=== PATIENT | female | born 1985 | race Two or more races ===

== ENCOUNTER 2024-03-03 18:22 | Inpatient (IN) | payer OTHER, SELFPAY ==
[2024-03-03] VITALS (10 sets, daily range): BP systolic 125–137; BP diastolic 68–88; PULSE 108–146; RESP 16–38; TEMP 37–38; O2SAT 98–100; BMI 30.3
--- NOTE | ~2024-03-03 | XR_ITS ---
EXAMINATION: XR CHEST CLINICAL INFORMATION: Cough. COMPARISON: None available. TECHNIQUE: 2 views of the chest were obtained. FINDINGS: The heart is normal in size. Both lungs are clear. No pleural effusion. No pneumothorax. No acute osseous abnormality. XR/XR chest 2V IMPRESSION: No acute cardiopulmonary disease. Electronically signed by: Augustus Mejias DO 03/03/2024 09:12 PM [facility]
--- NOTE | ~2024-03-03 | CT_ITS ---
EXAMINATION: CT ANGIOGRAM CHEST CLINICAL INFORMATION: Tachypnea. Cough. COMPARISON: Chest radiograph 03/03/2024. CT abdomen and pelvis 03/03/2024. TECHNIQUE: Multiple axial images were obtained through the chest after the administration of 65 mL of Omnipaque 350 intravenous contrast. Extensive vascular post-processing including two-dimensional and three-dimensional reformatted images were created and reviewed on an independent workstation. This CT examination was performed using dose optimization techniques as appropriate, variously including the following: *Automated exposure control *Adjustment of mA and/or kV according to patient size (this includes techniques or standardized protocols for targeted exams where dose is matched to indication/reason for exam; i.e. extremities or head) *Use of iterative reconstruction technique DLP: 256 mGy-cm FINDINGS: Pulmonary arteries: High-density intraluminal opacification of the pulmonary arterial system is noted. No intraluminal filling defects are identified to suggest the presence of pulmonary emboli. The main and central pulmonary arteries are normal in caliber. Thoracic aorta: Normal in caliber and contour. Mediastinum: The thyroid is partially visualized and is normal in appearance. No mediastinal lymphadenopathy. Normal heart size. No pericardial thickening or pericardial fluid collections. Lungs and pleura: No pleural effusions or pneumothoraces. No focal pulmonary consolidation. No endobronchial lesions. Visualized abdominal structures. 1.5 cm ovoid low density focus is present at the junction of the anterior and posterior segments of the right lobe of the liver and is most likely to be benign and on the basis of this examination warrants no additional imaging follow-up. Normal appearance of the adrenal glands. Skeletal structures: No suspicious skeletal lesions noted. CHEST WALL: No axillary lymphadenopathy. No thoracic wall inflammatory changes. CT/CT angio chest PE protocol IMPRESSION: *CT pulmonary angiogram negative for pulmonary embolic. *No pulmonary abnormalities identified. VTE: Negative. Electronically signed by: Fawad Maya MD 03/04/2024 12:54 AM [facility]
--- NOTE | ~2024-03-03 | CT_ITS ---
EXAMINATION: CT ABDOMEN AND PELVIS WITHOUT IV CONTRAST CLINICAL INFORMATION: Pain, bilateral, versus obstructing ureteral stone COMPARISON: None TECHNIQUE: Multiple axial images were obtained from the superior aspect of the liver through the pubic symphysis without intravenous contrast. Images were evaluated on independent dedicated 3-D workstation and 3-D images were reconstructed with concurrent radiologist supervision and subsequently interpreted. Oral contrast was not administered. This CT examination was performed using dose optimization techniques as appropriate, variously including the following: *Automated exposure control *Adjustment of mA and/or kV according to patient size (this includes techniques or standardized protocols for targeted exams where dose is matched to indication/reason for exam; i.e. extremities or head) *Use of iterative reconstruction technique DLP: 667 mGy-cm FINDINGS: LUNG BASES: The visualized lung bases are clear. CARDIOMEDIASTINUM: The visualized heart is normal in size without pericardial effusion. No coronary artery calcification. LIVER: Homogeneous in attenuation. Right hepatic cyst 2 cm. Enlarged measuring 22 cm in the midclavicular line.. GALLBLADDER: Noninflamed. BILIARY SYSTEM: No intrahepatic or extrahepatic biliary dilation. PANCREAS: Homogeneous in attenuation. SPLEEN: Normal in size. GENITOURINARY: No contour deforming masses. No perinephric fluid collection. Multiple punctate 2-3 mm right renal calculi. Mild right hydroureter with periureteral stranding. No ureteral or ureterovesicular junction calculus. ADRENAL GLANDS: Unremarkable. REPRODUCTIVE: Uterus and and bilateral adnexa are unremarkable. GASTROINTESTINAL: The visualized alimentary tract is normal in course. No evidence of obstruction. APPENDIX: The appendix is not visualized; however, no pericecal inflammatory changes are seen in the right lower quadrant. PERITONEUM: No pneumoperitoneum. No intra-abdominal fluid collection. VASCULATURE: No abdominal aortic aneurysm. LYMPH NODES: No pathologically enlarged abdominal or pelvic lymph nodes. SOFT TISSUES/MUSCULOSKELETAL: There is no acute fracture or significant focal osseous lesion. CT/CT abdomen pelvis wo IV con IMPRESSION: 1. Multiple 2 to 3 mm right renal calculi. There is mild right hydroureter with periureteral stranding, suggestive of a recently passed stone. 2. Hepatomegaly. Fleischner guidelines were followed. Electronically signed by: Chris Bradley DO 03/03/2024 10:11 PM [facility]
--- NOTE | 2024-03-03 18:33 | ED.GENADULT ---
HPI - General Adult General Chief complaint: Fever Stated complaint: 1 week of vomiting, fibral referred by Urgent Care Time Seen by Provider: 03/03/24 19:13 Source: patient Limitations: no limitations History of Present Illness ED Provider: Allie Nails PA-C HPI narrative: 38-year-old otherwise healthy female presents with multiple complaints over the past week. Patient states she has had a dry cough, sore throat, mid back pain, vomiting with persisting fevers. Denies sick contacts with similar symptoms. Denies chest pain, shortness of breath, diarrhea, dysuria or hematuria. Denies history of kidney stones. Related Data Allergies Allergy/AdvReac Type Severity Reaction Status Date / Time No Known Allergies Allergy Verified 03/03/24 18:37 Review of Systems Review of Systems: Yes all other systems are reviewed and are negative Constitutional: Constitutional: Reports fever(s), Reports malaise and Reports poor appetite Cardiovascular: Cardiovascular: Denies chest pain and Denies dyspnea Respiratory: Respiratory: Reports cough, Denies dyspnea and Denies wheezing Gastrointestinal: Gastrointestinal: Denies abdominal pain, Denies diarrhea, Reports nausea and Reports vomiting Genitourinary: Genitourinary: Denies hematuria, Denies dysuria and Denies flank pain Allergic/Immunologic: Allergic/Immunologic: Denies wheezing PMFSH Past Medical History Attestation statement: The following information was validated with the patient. Social History Social History Smoked in Last 30 Days: No Use of substances other than those prescribed or required for medical reasons: No Advance Directives: No Advance Directives Information Provided: Yes Physical Exam ED Vital Signs: Vital Signs - 24 hr 03/03/24 18:33 03/03/24 19:18 03/03/24 20:01 Temperature 99.8 F 99.8 F 98.6 F Pulse Rate 146 H 137 H 113 H Respiratory Rate 24 H 38 H 27 H Blood Pressure 127/68 130/83 131/86 Pulse Oximetry 98 98 98 Oxygen Delivery Method Room Air Room Air Room Air 03/03/24 20:35 03/03/24 20:55 03/03/24 21:25 Temperature 99.6 F 98.9 F Pulse Rate 111 H 108 H 116 H Respiratory Rate 16 27 H 29 H Blood Pressure 134/86 132/81 137/85 Pulse Oximetry 99 100 100 Oxygen Delivery Method Room Air Room Air Room Air 03/03/24 21:32 03/03/24 21:43 03/03/24 21:53 Temperature 99.6 F 99.8 F 100.4 F Pulse Rate 114 H 108 H 108 H Respiratory Rate 28 H 26 H 27 H Blood Pressure 135/88 131/84 127/84 Pulse Oximetry 100 100 100 Oxygen Delivery Method Room Air Room Air Room Air 03/03/24 23:57 Temperature 99.8 F Pulse Rate 115 H Respiratory Rate 24 H Blood Pressure 125/76 Pulse Oximetry 99 Oxygen Delivery Method Room Air BMI result Body Mass Index 30.3 Const Other: Alert, overall well-appearing Orientation/consciousness: patient oriented x3 HENMT Other: Oropharynx is erythematous without exudate, uvula midline, no trismus no drooling, no sublingual fluctuance, no swelling inferior to the jawline Resp Other: Nonlabored respirations Cardio Other: Normal peripheral perfusion GI Other: Abdomen is soft, nondistended nontender Back/Spine/Pelvis Other: Bilateral CVA tenderness Skin Other: Warm dry no rash Neuro General: patient oriented x3, no focal motor deficits and CN's II-XI intact bilaterally Psych Other: Calm cooperative Course Course Course Narrative: This is an RME performed by Nickolas Silverio CNP: Additional HPI, ROS, PE not included below will be deferred to primary provider. Patient is a 38-year-old female who presents to the emergency department for evaluation, coming from urgent care, cough, multiple episodes of vomiting, unable to tolerate oral intake, intermittent epigastric abdominal pain, persistent fevers despite antipyretics. Febrile at urgent care 101.8 (received expect call) had antipyretics there, Arrives tachycardic at 146. Presents with radiologist impression of CXR, no evidence of consolidation or infiltrate. 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 Blood cultures and lactic acid ordered. Plan: Serum labs, viral serologies, urinalysis Reevaluation(s) Reevaluation #1: Patient received in sign-out at change of shift pending disposition. The patient's CT scan of her abdomen pelvis shows questionable recently passed stone however there was no significant right flank pain. I think the periureteral stranding is likely due to ascending infection. She was given ceftriaxone by previous provider. The patient remain tachypneic to 30 respirations per minute and tachycardic to 120 beats per minute. She did complain of a cough but denied chest pain or shortness of breath. I eventually ordered a CT angiography to rule out PE given these abnormal vital signs. This was negative. Her tachypnea is likely due to sepsis. Discussed with the hospitalist for admission Time: 01:04 Medications Administered Discontinued Medications Generic Name Dose Route Start Last Admin Trade Name Augustina PRN Reason Stop Dose Admin Acetaminophen 650 mg 03/03/24 21:55 03/03/24 22:02 Acetaminophen 325 Mg Tablet PO 03/03/24 21:56 650 mg ONCE ONE Administration Ceftriaxone Sodium 2 gm 03/03/24 19:26 03/03/24 19:40 Ceftriaxone Sodium 2 Gm Vial IVPUSH 03/03/24 19:27 2 gm ONCE ONE Administration Sodium Chloride 2,475 mls @ 2,475 mls/hr 03/03/24 19:14 03/03/24 21:24 Ns 30 ml/kg infuse over 1 hr (2475 ml) 03/03/24 20:13 Infused IV Infusion .Q1H STA Iohexol 65 ml 03/03/24 23:45 03/03/24 23:46 Iohexol 350 Mg/Ml 100 Ml Infus..Btl IV 03/03/24 23:46 65 ml ONCE ONE Administration Ketorolac Tromethamine 15 mg 03/03/24 19:15 03/03/24 19:40 Ketorolac Tromethamine 15 Mg/Ml Vial IVPUSH 03/03/24 19:16 15 mg ONCE ONE Administration Ondansetron HCl 4 mg 03/03/24 19:55 03/03/24 19:59 Ondansetron Hcl 4 Mg/2 Ml Vial IVPUSH 03/03/24 19:56 4 mg ONCE ONE Administration Medical Decision Making Medical Decision Making [facility] Narrative: 38-year-old otherwise healthy female presents with multiple complaints over the past week. Patient states she has had a dry cough, sore throat, mid back pain, vomiting with persisting fevers. Denies sick contacts with similar symptoms. Denies chest pain, shortness of breath, diarrhea, dysuria or hematuria. Denies history of kidney stones. No relevant chronic issues History: Per patient I have considered the following differential diagnoses: Viral syndrome, pneumonia, strep pharyngitis, PRODUCTION GRAPHIC DESIGNER/RPA, pyelonephritis, obstructing ureteral stone, sepsis Plan: Most concerned for sepsis, the patient is meeting SIRS criteria. Low-grade temp from triage, tachycardic, is normotensive. Screening labs including UA, strep swab, viral panel, blood cultures and lactic acid were obtained. Thus far, the patient has a urinary tract infection in his passing hematuria, with a concurrent back pain and fevers, I am concerned for pyelonephritis versus obstructing ureteral stone. We will be obtaining a CT scan. Giving weight based IV fluid resuscitation per sepsis protocol, ceftriaxone, Zofran and Toradol. She received Tylenol from triage. In regard to the sore throat, it is likely viral given concurrent dry cough. There was no evidence of RPA or PRODUCTION GRAPHIC DESIGNER on my exam. In regard to the cough, again the cough is dry nonproductive, she could still have pneumonia, we will obtain a chest x-ray as mycoplasma has been prevalent within the community. I have independently reviewed the following tests: Labs: No overall leukocytosis, however does have left shift, not anemic, no electrolyte abnormality, not , urine is infected, viral panel negative, strep screen negative, lactic 1 Chest x-ray: CT abdomen and pelvis: Lab Data 03/03/24 19:02 03/03/24 19:02 Labs: Lab Results 03/03/24 03/03/24 03/03/24 Range/Units 19:02 19:10 19:24 WBC 9.7 (4.8-10.8) X10*3/uL RBC 3.80 L (4.20-5.50) X10*6/uL Hgb 10.9 L (12.0-16.0) g/dl Hct 32.0 L (37.0-47.0) % MCV 84.2 (80.0-98.0) fL MCH 28.7 (27.0-33.0) pg MCHC 34.1 (31.0-35.0) g/dl RDW 13.8 (11.0-16.0) % Plt Count 184 (160-400) X10*3/uL MPV 12.4 H (9.4-12.3) fL Immature Gran % (Auto) 1.6 H (0.0-0.4) % Neut % (Auto) 86.3 H (45-73) % Lymph % (Auto) 6.5 L (20-40) % [place] % (Auto) 5.0 (2-11) % Eos % (Auto) 0.0 (0-4) % Baso % (Auto) 0.6 (0-2) % Lymph # (Auto) 0.6 L (1.2-4.9) X10*3/uL [place] # (Auto) 0.5 (0.1-1.2) X10*3/uL Eos # (Auto) 0.0 (0.0-0.4) X10*3/uL Baso # (Auto) 0.1 (0.0-0.2) X10*3/uL Abs Immat Gran (auto) 0.15 H (0.00-0.03) X10*3/uL Absolute Neuts (auto) 8.4 H (2.0-8.3) x10*3/uL Absolute Nucleated RBC 0.000 (0.0-0.012) X10*3/uL Nucleated RBC % (auto) 0.0 (0.0-0.2) /100WBC PT 14.5 H (10.9-12.4) SEC INR 1.2 H (0.9-1.1) D-Dimer High Sensitivty 663 NG/ML VBG pH (7.32-7.43) VBG pCO2 mmHg VBG pO2 mmHg VBG HCO3 (22-26) mmol/L VBG O2 Saturation % VBG Base Excess mmol/L Sodium 135 (135-145) mmol/L Potassium 3.3 (3.3-5.1) mmol/L Chloride 105 (96-108) mmol/L Carbon Dioxide 21 L (22-29) mmol/L Anion Gap 12 (12-20) BUN 13 (9-16) mg/dL Creatinine 0.96 (0.5-1.4) mg/dL Estim Creat Clear Calc 83.4 Estimated GFR > 60 Random Glucose 123 H (60-115) mg/dL Lactic Acid 1.0 (0.5-2.0) mmol/L Calcium 9.1 (8.4-10.2) mg/dL Total Bilirubin 0.7 (0.0-1.0) mg/dL AST 23 (5-31) U/L ALT 23 (0-31) U/L Alkaline Phosphatase 128 H (39-117) U/L Total Protein 7.4 (6.5-8.0) g/dL Albumin 3.3 L (3.5-5.0) g/dL Lipase 9 (8-78) U/L Beta HCG, Quant < 2 mIU/mL Urine Color Dark Yellow Urine Appearance Turbid Urine pH 6.5 (5.0-9.0) Ur Specific [place] 1.020 (1.005-1.025) Urine Protein 300 (3+) H (Neg-Trace) mg/dL Urine Glucose (UA) Negative (Negative) mg/dL Urine Ketones Trace (Negative) mg/dL Urine Blood Large (3+) H (Negative) Urine Nitrite Positive H (Negative) Ur Leukocyte Esterase Large (3+) H (Negative) Urine RBC >20 H (0-2) /HPF Urine WBC >50 H (0-5) /HPF Urine WBC Clumps Present Ur Squamous Epith Cells 6-10 (0-2) /HPF Urine Bacteria 4+ (None Seen) Hyaline Casts 6-10 (0-2) /LPF Influenza Type A (PCR) NEGATIVE (Negative) Influenza Type B (PCR) NEGATIVE (Negative) RSV RNA Qual (PCR) NEGATIVE (Negative) SARS-CoV-2 RNA (RT-PCR) NEGATIVE (Negative) S. pyogenes GrpA PATRICK Negative (Negative) 03/04/24 Range/Units 00:12 WBC (4.8-10.8) X10*3/uL RBC (4.20-5.50) X10*6/uL Hgb (12.0-16.0) g/dl Hct (37.0-47.0) % MCV (80.0-98.0) fL MCH (27.0-33.0) pg MCHC (31.0-35.0) g/dl RDW (11.0-16.0) % Plt Count (160-400) X10*3/uL MPV (9.4-12.3) fL Immature Gran % (Auto) (0.0-0.4) % Neut % (Auto) (45-73) % Lymph % (Auto) (20-40) % [place] % (Auto) (2-11) % Eos % (Auto) (0-4) % Baso % (Auto) (0-2) % Lymph # (Auto) (1.2-4.9) X10*3/uL [place] # (Auto) (0.1-1.2) X10*3/uL Eos # (Auto) (0.0-0.4) X10*3/uL Baso # (Auto) (0.0-0.2) X10*3/uL Abs Immat Gran (auto) (0.00-0.03) X10*3/uL Absolute Neuts (auto) (2.0-8.3) x10*3/uL Absolute Nucleated RBC (0.0-0.012) X10*3/uL Nucleated RBC % (auto) (0.0-0.2) /100WBC PT (10.9-12.4) SEC INR (0.9-1.1) D-Dimer High Sensitivty NG/ML VBG pH 7.45 H (7.32-7.43) VBG pCO2 24 mmHg VBG pO2 195 mmHg VBG HCO3 17 L (22-26) mmol/L VBG O2 Saturation 100.0 % VBG Base Excess -5.1 mmol/L Sodium (135-145) mmol/L Potassium (3.3-5.1) mmol/L Chloride (96-108) mmol/L Carbon Dioxide (22-29) mmol/L Anion Gap (12-20) BUN (9-16) mg/dL Creatinine (0.5-1.4) mg/dL Estim Creat Clear Calc Estimated GFR Random Glucose (60-115) mg/dL Lactic Acid (0.5-2.0) mmol/L Calcium (8.4-10.2) mg/dL Total Bilirubin (0.0-1.0) mg/dL AST (5-31) U/L ALT (0-31) U/L Alkaline Phosphatase (39-117) U/L Total Protein (6.5-8.0) g/dL Albumin (3.5-5.0) g/dL Lipase (8-78) U/L Beta HCG, Quant mIU/mL Urine Color Urine Appearance Urine pH (5.0-9.0) Ur Specific [place] (1.005-1.025) Urine Protein (Neg-Trace) mg/dL Urine Glucose (UA) (Negative) mg/dL Urine Ketones (Negative) mg/dL Urine Blood (Negative) Urine Nitrite (Negative) Ur Leukocyte Esterase (Negative) Urine RBC (0-2) /HPF Urine WBC (0-5) /HPF Urine WBC Clumps Ur Squamous Epith Cells (0-2) /HPF Urine Bacteria (None Seen) Hyaline Casts (0-2) /LPF Influenza Type A (PCR) (Negative) Influenza Type B (PCR) (Negative) RSV RNA Qual (PCR) (Negative) SARS-CoV-2 RNA (RT-PCR) (Negative) S. pyogenes GrpA PATRICK (Negative) Discharge Plan Discharge Clinical Impression: Sepsis, Pyelonephritis Patient Disposition: Admitted As Inpatient Print Language: Arabic
--- NOTE | 2024-03-03 18:38 | ECG_ITS ---
Test Reason : TACHYCARDIA Blood Pressure : / mmHG Vent. Rate : 136 BPM Atrial Rate : 136 BPM P-R Int : 142 ms QRS Dur : 086 ms QT Int : 282 ms P-R-T Axes : 027 027 008 degrees QTc Int : 424 ms Sinus tachycardia Otherwise normal ECG No previous ECGs available Referred By: Suki Silverio Electronically Signed By:Grayson Delgado
[2024-03-03 19:10] LABS: MANUAL DIFF FLAG NO
[2024-03-03 19:18] LABS: Appearance Urine Turbid; Color Urine Dark Yellow; Glucose Urine UA Negative (Negative); Leukocyte Esterase Urine Large (3+) (Negative); Nitrite Urine Positive (Negative); PH 6.5 (5.0-9.0); UMIC TRIGGER UACC YES; Urine Blood Large (3+) (Negative); Urine Ketones Trace mg/dL (Negative); Urine Protein 300 (3+) mg/dL (Neg-Trace)
[2024-03-03 19:18] LABS: INTERNATIONAL NORM RATIO 1.2 (0.9-1.1); Prothrombin Time 14.5 SEC (10.9-12.4)
[2024-03-03 19:19] LABS: IDNOW Serial# 58CA691E; Strep A Nucleic Acid Negative (Negative)
--- NOTE | 2024-03-03 19:19 | MHC.EDTECH ---
This tech took over care of patient at this time,patient brought from triage area,changed into hospital attire,vitals taken,placed pt on the adjunct latin professor,HR and resp. rate are elevated,RN Blanca at bedside,call frazier in reach
[2024-03-03 19:23] LABS: Basophils Absolute Auto 0.1 X10*3/uL (0.0-0.2); Basophils Percent Auto 0.6 % (0-2); Hemoglobin 10.9 g/dl (12.0-16.0); Imm Gran Abs Auto 0.15 X10*3/uL (0.00-0.03); Imm Gran Pct Auto 1.6 % (0.0-0.4); Lymphocytes Absolute Auto 0.6 X10*3/uL (1.2-4.9); Lymphocytes Percent Auto 6.5 % (20-40); Mean Corpuscular HGB Conc 34.1 g/dl (31.0-35.0); Mean Corpuscular Hemoglobin 28.7 pg (27.0-33.0); Mean Corpuscular Volume 84.2 fL (80.0-98.0); Mean Platelet Volume 12.4 fL (9.4-12.3); Monocytes Absolute Auto 0.5 X10*3/uL (0.1-1.2); Neutrophils Absolute Auto 8.4 x10*3/uL (2.0-8.3); Neutrophils Percent Auto 86.3 % (45-73); Platelet Count 184 X10*3/uL (160-400); Red Cell Distribution Width 13.8 % (11.0-16.0); White Blood Count 9.7 X10*3/uL (4.8-10.8)
[2024-03-03 19:26] LABS: Alanine Aminotransferase 23 U/L (0-31); Albumin Level 3.3 g/dL (3.5-5.0); Alkaline Phosphatase 128 U/L (39-117); Anion Gap 12 (12-20); Aspartate Amino Transferase 23 U/L (5-31); Bilirubin Total 0.7 mg/dL (0.0-1.0); Blood Urea Nitrogen 13 mg/dL (9-16); Calcium 9.1 mg/dL (8.4-10.2); Carbon Dioxide 21 mmol/L (22-29); Chloride 105 mmol/L (96-108); Creatinine Clr Calc Pharmacy 83.4; Estimated Glomerular Filt Rate > 60; Glucose Random 123 mg/dL (60-115); Lipase 9 U/L (8-78); Potassium 3.3 mmol/L (3.3-5.1); Sodium 135 mmol/L (135-145); Total Protein 7.4 g/dL (6.5-8.0)
[2024-03-03] MEDS: 0.9 % Sodium Chloride 2,475 ML 2475 ML IV (19:39)
[2024-03-03] MEDS: cefTRIAXone sodium 2 GM VIAL IVPUSH (19:40)
[2024-03-03] MEDS: Ketorolac Tromethamine 15 MG/ML VIAL IVPUSH (19:40)
[2024-03-03 19:42] LABS: Bacteria Urine 4+ (None Seen); RBC Urine >20 /HPF (0-2); UACC Culture Trigger YES; WBC Clumps Urine Present; WBC Urine >50 /HPF (0-5)
[2024-03-03 19:48] LABS: Influenza A PCR NEGATIVE (Negative); Influenza B PCR NEGATIVE (Negative); Resp Syncy Virus RNA Qual PCR NEGATIVE (Negative); SARS COV2 PCR INHOUSE NEGATIVE (Negative)
[2024-03-03 19:56] LABS: HCG Quantitative < 2 mIU/mL
[2024-03-03] MEDS: ondansetron HCL 4 MG/2 ML VIAL IVPUSH (19:59)
--- NOTE | 2024-03-03 21:33 | MHC.EDTECH ---
Patient ambulated to the bathroom with a steady gait,vitals taken,HR/RESP rate elevated RN is aware,
--- NOTE | 2024-03-03 22:00 | MHC.EDTECH ---
Vitals taken,temp/hr/resp.rate are elevated RN aware
[2024-03-03] MEDS: Acetaminophen 325 MG TABLET 650 MG PO (22:02)
[2024-03-03 22:56] LABS: D Dimer High Sensitivity 663 NG/ML
[2024-03-03] MEDS: iohexoL 350 MG/ML 100 ML INFUS..BTL 65 ML IV (23:46)
--- NOTE | 2024-03-04 00:10 | MHC.EDTECH ---
SIVAKUMARG drawn and sent to lab.
[2024-03-04 00:15] LABS: Venous Blood Gas Refer to POC result
[2024-03-04 00:18] LABS: VBG Base Excess -5.1 mmol/L; VBG HCO3 17 mmol/L (22-26); VBG pCO2 24 mmHg; VBG pH 7.45 (7.32-7.43); VBG pO2 195 mmHg
[2024-03-04 01:08] VITALS: BP 142/82; PULSE 113; RESP 25; TEMP 36.9; O2SAT 97
--- NOTE | 2024-03-04 02:05 | P.HPHOSP_ITS ---
History of Present Illness Date of Service: 03/04/24 Attending physician on admission: Brittni Griffin Chief Complaint: Back pain Ivania Vargas is a 38 years old woman with no significant past medical history presents to the emergency department complaining of mid back pain over the last week associated nausea, multiple events of nonbloody vomiting, fever or chills. The pain does not radiate. She did not report any pain with urination or any other acute urinary changes such as blood in urine. She has been taking auai-szl-[id number] antiemetics, Tylenol and Motrin without significant improvement of symptoms. She denied tobacco smoking, alcohol abuse or illicit drug use. She denies history of kidney stones or recurrent urinary tract infections. She has no devices such as IUDs. Does not take medications in a daily basis. In the ED, she was found to have significant tachycardia (max 146), most recent heart rate is fluctuating between 110 - 115.. There is no hypotension but low- grade fever of 100.4. There is no leukocytosis or lactic acidosis. Hemoglobin is 10.9 and platelets are 184. INR is 1.2. Blood pH is 7.45, pCO2 24 NaHCO3 of 17. There are no significant electrolyte imbalances. Renal function, LFTs and lipase are essentially unremarkable. test is negative. Urinalysis consistent with UTI and microscopic hematuria. Viral testing for COVID-19, influenza and RSV is negative. Abdominal pelvis CT scan showed multiple 2-3 mm right renal calculi with mild right hydroureter with periureteral stranding suggesting a recently passed stone and splenomegaly. Chest CTA is negative for pulmonary embolism and no evidence of pleural effusion, pneumothorax or consolidations. ECG showed sinus tachycardia 136 bpm and no acute ischemic changes. ED tx: NS 2.5 L bolus, ketorolac 15 mg IV, ceftriaxone 2 g, Zofran 4 mg IV, acetaminophen 650 mg PO. Review of Systems 2 Review of Systems: All 12 systems were reviewed and normal except as noted in HPI. PMFSH Social History Smoked in Last 30 Days: No Use of substances other than those prescribed or required for medical reasons: No Advance Directives: No Advance Directives Information Provided: Yes Meds Allergies Allergy/AdvReac Type Severity Reaction Status Date / Time No Known Allergies Allergy Verified 03/03/24 18:37 Active Medications: Current Medications Acetaminophen (Acetaminophen 325 Mg Tablet) 975 mg PO Q6H PRN PRN Reason: Pain, Mild (Pain Scale 1-3), fever or headache Ceftriaxone Sodium (Ceftriaxone Sodium 1 Gm Vial) 1 gm IVPUSH Q24H [facility] Enoxaparin Sodium (Enoxaparin Sodium 40 Mg/0.4 Ml Syringe) 40 mg SUBCUT Q24H [facility] Lactated Ringer's (Lr) 1,000 mls @ 150 mls/hr IVCONT .Q6H40M [facility] Ibuprofen (Ibuprofen 600 Mg Tablet) 600 mg PO Q8H PRN PRN Reason: Pain, Moderate(Pain Scale 4-6) Morphine Sulfate (Morphine Sulfate 4 Mg/Ml Cartridge) 2 mg IVPUSH Q4H PRN; Protocol PRN Reason: Pain, Severe (Pain Scale 7-10) Sodium Chloride (0.9 % Sodium Chloride Flush 3 Ml Syringe) 3 ml IVFLUSH QSHIFT [facility] Physical Exam 2 Vital Signs and Narrative: Vital Signs: Last Vital Signs Temp 98.5 F 03/04/24 01:08 Pulse 113 H 03/04/24 01:08 Resp 25 H 03/04/24 01:08 BP 142/82 H 03/04/24 01:08 Pulse Ox 97 03/04/24 01:08 O2 Del Method Room Air 03/04/24 01:08 BMI result Body Mass Index 30.3 Constitutional - Awake and Alert, No apparent distress. Febrile. Pleasant. Cooperative. HEENT - PER, EOMI. Normal sclerae. Dry oral mucosa. Heart - Tachycardic, normal rate. No murmurs. Lungs - Normal lung expansion, Normal respiratory effort, No respiratory distress, CTA bilaterally Abdomen - NT / ND; +BS; No rebound or guarding - Right CVA tenderness Extremities - no calf tenderness bilaterally, no swelling Musculoskeletal - Normal inspection, normal ROM Skin - Warm/Dry Neurological - Alert & oriented x3. No focal weakness grossly noted. Normal speech. Psychological - Appropriate affect Results Labs 03/03/24 19:02 03/03/24 19:02 Labs: Laboratory Results - last 24 hr 03/03/24 03/03/24 03/03/24 19:02 19:10 19:24 MCV 84.2 MCH 28.7 MCHC 34.1 RDW 13.8 Plt Count 184 MPV 12.4 H Immature Gran % (Auto) 1.6 H Neut % (Auto) 86.3 H Lymph % (Auto) 6.5 L [place] % (Auto) 5.0 Eos % (Auto) 0.0 Baso % (Auto) 0.6 Lymph # (Auto) 0.6 L [place] # (Auto) 0.5 Eos # (Auto) 0.0 Baso # (Auto) 0.1 Abs Immat Gran (auto) 0.15 H Absolute Neuts (auto) 8.4 H Absolute Nucleated RBC 0.000 Nucleated RBC % (auto) 0.0 PT 14.5 H INR 1.2 H D-Dimer High Sensitivty 663 VBG pH VBG pCO2 VBG pO2 VBG HCO3 VBG O2 Saturation VBG Base Excess Anion Gap 12 Estim Creat Clear Calc 83.4 Estimated GFR > 60 Random Glucose 123 H Lactic Acid 1.0 Calcium 9.1 Total Bilirubin 0.7 AST 23 ALT 23 Alkaline Phosphatase 128 H Total Protein 7.4 Albumin 3.3 L Lipase 9 Beta HCG, Quant < 2 Urine Color Dark Yellow Urine Appearance Turbid Urine pH 6.5 Ur Specific [place] 1.020 Urine Protein 300 (3+) H Urine Glucose (UA) Negative Urine Ketones Trace Urine Blood Large (3+) H Urine Nitrite Positive H Ur Leukocyte Esterase Large (3+) H Urine RBC >20 H Urine WBC >50 H Urine WBC Clumps Present Ur Squamous Epith Cells 6-10 Urine Bacteria 4+ Hyaline Casts 6-10 Influenza Type A (PCR) NEGATIVE Influenza Type B (PCR) NEGATIVE RSV RNA Qual (PCR) NEGATIVE SARS-CoV-2 RNA (RT-PCR) NEGATIVE S. pyogenes GrpA PATRICK Negative 03/04/24 00:12 MCV MCH MCHC RDW Plt Count MPV Immature Gran % (Auto) Neut % (Auto) Lymph % (Auto) [place] % (Auto) Eos % (Auto) Baso % (Auto) Lymph # (Auto) [place] # (Auto) Eos # (Auto) Baso # (Auto) Abs Immat Gran (auto) Absolute Neuts (auto) Absolute Nucleated RBC Nucleated RBC % (auto) PT INR D-Dimer High Sensitivty VBG pH 7.45 H VBG pCO2 24 VBG pO2 195 VBG HCO3 17 L VBG O2 Saturation 100.0 VBG Base Excess -5.1 Anion Gap Estim Creat Clear Calc Estimated GFR Random Glucose Lactic Acid Calcium Total Bilirubin AST ALT Alkaline Phosphatase Total Protein Albumin Lipase Beta HCG, Quant Urine Color Urine Appearance Urine pH Ur Specific [place] Urine Protein Urine Glucose (UA) Urine Ketones Urine Blood Urine Nitrite Ur Leukocyte Esterase Urine RBC Urine WBC Urine WBC Clumps Ur Squamous Epith Cells Urine Bacteria Hyaline Casts Influenza Type A (PCR) Influenza Type B (PCR) RSV RNA Qual (PCR) SARS-CoV-2 RNA (RT-PCR) S. pyogenes GrpA PATRICK Imaging Radiologist's Impressions: Impressions Chest X-Ray 03/03/24 19:27 IMPRESSION: No acute cardiopulmonary disease. Electronically signed by: Augustus Mejias DO 03/03/2024 09:12 PM EST RP Abdomen/Pelvis CT 03/03/24 20:11 IMPRESSION: 1. Multiple 2 to 3 mm right renal calculi. There is mild right hydroureter with periureteral stranding, suggestive of a recently passed stone. 2. Hepatomegaly. Fleischner guidelines were followed. Electronically signed by: Chris Bradley DO 03/03/2024 10:11 PM EST RP Chest CTA 03/03/24 23:48 IMPRESSION: *CT pulmonary angiogram negative for pulmonary embolic. *No pulmonary abnormalities identified. VTE: Negative. Electronically signed by: Fawad Maya MD 03/04/2024 12:54 AM EST RP Assessment and Plan (1) Pyelonephritis: Status: Acute (2) SIRS (systemic inflammatory response syndrome): Status: Acute (3) Sinus tachycardia: Status: Acute (4) Anemia: Qualifiers: Anemia type: unspecified type Qualified Code(s): D64.9 - Anemia, unspecified Status: Acute Plan Ivania Vargas is a 38 y/o woman admitted with: * SIRS criteria: Tachypnea and tachycardia (but no severe sepsis) secondary to acute pyelonephritis + microscopic hematuria --> passed stone. Admit to hospitalist service. Telemetry. Continue IV fluids and empiric IV antibiotic therapy with Zosyn. Pain control with Motrin or morphine as needed. Blood and urine cultures obtained -will follow results. * Anemia. Continue to monitor. Code status: Full DVT prophylaxis: Lovenox Patient will need hospitalization for at least 2 midnights for acute pyelonephritis treatment with IV fluids, IV pain medications and empiric IV antibiotic therapy. She will also need cardiac monitoring due marked tachycardia. Quality Stroke Does the patient have a stroke diagnosis?: No VTE Prior VTE?: No VTE Risk Level:: Medical - moderate - high VTE Device Contraindication: Treatment Not Indicated VTE Drug Contraindication: N/A - Med Ordered
[2024-03-04] MEDS: Metoclopramide HCl 10 MG/2 ML VIAL 5 MG IVPUSH ×3 (02:36→18:06)
[2024-03-04] MEDS: Enoxaparin Sodium 40 MG/0.4 ML SYRINGE SUBCUT (02:37)
[2024-03-04] MEDS: Morphine Sulfate 4 MG/ML CARTRIDGE 2 MG IVPUSH ×2 (02:43→08:48)
[2024-03-04] MEDS: Lactated Ringers 1,000 ML 150 ML IVCONT ×3 (02:44→20:34)
[2024-03-04 02:47] VITALS: BP 139/83; PULSE 106; RESP 21; TEMP 37.1; O2SAT 98
[2024-03-04 08:00] VITALS: BP 119/96; PULSE 132; RESP 18; TEMP 37.8; O2SAT 96
[2024-03-04] MEDS: cefTRIAXone sodium 1 GM VIAL IVPUSH (08:56)
[2024-03-04 09:12] VITALS: BMI 32.8
[2024-03-04 09:45] VITALS: TEMP 37.6
[2024-03-04] MEDS: Omeprazole 20 MG CAPSULE.DR PO ×2 (10:23→18:06)
--- NOTE | 2024-03-04 10:23 | PM.EVENT ---
Event Note Date of Service: 03/04/24 Event Note: seen and evaluated reporting CVA pain still spiking fever Blood culture +ve for GNR Continue Ceftriaxone for now Time Spent With Patient Time: Total time managing care of this patient today ____ minutes.
[2024-03-04] MEDS: Ketorolac Tromethamine 15 MG/ML VIAL IVPUSH (10:24)
--- NOTE | 2024-03-04 10:47 | PHA.MEDREC ---
Pharmacy Consult ? Medication Reconciliation Pharmacy has completed the medication reconciliation. Spoke to pt to confirm meds.
--- NOTE | 2024-03-04 13:30 | MHC.CM.PN ---
CM MET WITH PT WITH A MANAGER SALES SUPPORT PT LIVES WITH HER AND IS INDEPENDENT WITH CARE SHE HAS NO DME AND NO SERVICES SHE DECLINES TO COMPLETE A HCP AND HAS NO DME RIGHTS DELIVERED DCP: HOME NO SERVICES VIA PRIVATE TRANSPORT
[2024-03-04] MEDS: Acetaminophen 325 MG TABLET 975 MG PO (14:32)
[2024-03-04 15:46] VITALS: BP 125/71; PULSE 102; RESP 16; TEMP 38.1; O2SAT 95
[2024-03-04 18:56] VITALS: BP 141/90; PULSE 100; RESP 18; TEMP 36.6; O2SAT 93
[2024-03-04] MEDS: Ibuprofen 600 MG TABLET PO (20:45)
[2024-03-05] MEDS: Metoclopramide HCl 10 MG/2 ML VIAL 5 MG IVPUSH (01:35)
[2024-03-05] MEDS: Enoxaparin Sodium 40 MG/0.4 ML SYRINGE SUBCUT (01:38)
[2024-03-05] MEDS: Acetaminophen 325 MG TABLET 975 MG PO (03:04)
[2024-03-05] MEDS: Lactated Ringers 1,000 ML 150 ML IVCONT ×2 (03:07→09:26)
[2024-03-05 03:08] VITALS: BP 161/89; PULSE 88; RESP 16; TEMP 36.7; O2SAT 92
[2024-03-05] MEDS: Omeprazole 20 MG CAPSULE.DR PO (05:46)
[2024-03-05 07:03] LABS: Basophils Percent Auto 0.2 % (0-2); Eosinophils Percent Auto 0.4 % (0-4); Imm Gran Abs Auto 0.08 X10*3/uL (0.00-0.03); Imm Gran Pct Auto 0.9 % (0.0-0.4); Lymphocytes Absolute Auto 1.2 X10*3/uL (1.2-4.9); Lymphocytes Percent Auto 14.3 % (20-40); MANUAL DIFF FLAG SCAN; Mean Corpuscular HGB Conc 33.3 g/dl (31.0-35.0); Mean Corpuscular Hemoglobin 28.8 pg (27.0-33.0); Mean Corpuscular Volume 86.3 fL (80.0-98.0); Mean Platelet Volume 12.6 fL (9.4-12.3); Monocytes Absolute Auto 1.2 X10*3/uL (0.1-1.2); Monocytes Percent Auto 13.6 % (2-11); Neutrophils Percent Auto 70.6 % (45-73); Platelet Count 140 X10*3/uL (160-400); Red Blood Count 3.13 X10*6/uL (4.20-5.50); Red Cell Distribution Width 14.8 % (11.0-16.0); SCAN SMEAR FLAG 1; White Blood Count 8.4 X10*3/uL (4.8-10.8)
[2024-03-05 07:20] LABS: Anion Gap 15 (12-20); Blood Urea Nitrogen 9 mg/dL (9-16); Calcium 8.2 mg/dL (8.4-10.2); Carbon Dioxide 20 mmol/L (22-29); Chloride 110 mmol/L (96-108); Creatinine Clr Calc Pharmacy 124.4; Estimated Glomerular Filt Rate > 60; Glucose Random 84 mg/dL (60-115); Potassium 3.6 mmol/L (3.3-5.1); Sodium 141 mmol/L (135-145)
[2024-03-05 07:28] VITALS: BP 143/81; PULSE 90; RESP 18; TEMP 36.3; O2SAT 92
[2024-03-05 07:51] LABS: SLIDE REVIEW VERIFIED
[2024-03-05] MEDS: Ibuprofen 600 MG TABLET PO (08:17)
[2024-03-05] MEDS: cefTRIAXone sodium 1 GM VIAL IVPUSH (08:18)
[2024-03-05] MEDS: 0.9 % Sodium Chloride Flush 3 ML SYRINGE IVFLUSH (08:26)
--- NOTE | 2024-03-05 10:25 | P.DS_ITS ---
DS: Providers Provider Date of Service: 03/05/24 Date of admission: 03/04/24 02:02 Date of discharge: 03/05/24 Primary care physician: Sea Physician DS: Diagnosis Discharge Diagnosis (1) Pyelonephritis: Status: Acute (2) SIRS (systemic inflammatory response syndrome): Status: Acute (3) Sinus tachycardia: Status: Acute (4) Anemia: Status: Acute (5) Bacteremia, escherichia coli: Status: Acute DS: Summary Hospital Course Hospital Course: Admission note HPI Ivania Vargas is a 38 years old woman with no significant past medical history presents to the emergency department complaining of mid back pain over the last week associated nausea, multiple events of nonbloody vomiting, fever or chills. The pain does not radiate. She did not report any pain with urination or any other acute urinary changes such as blood in urine. She has been taking inyn-cci-ceblnet antiemetics, Tylenol and Motrin without significant improvement of symptoms. She denied tobacco smoking, alcohol abuse or illicit drug use. She denies history of kidney stones or recurrent urinary tract infections. She has no devices such as IUDs. Does not take medications in a daily basis. In the ED, she was found to have significant tachycardia (max 146), most recent heart rate is fluctuating between 110 - 115.. There is no hypotension but low- grade fever of 100.4. There is no leukocytosis or lactic acidosis. Hemoglobin is 10.9 and platelets are 184. INR is 1.2. Blood pH is 7.45, pCO2 24 NaHCO3 of 17. There are no significant electrolyte imbalances. Renal function, LFTs and lipase are essentially unremarkable. test is negative. Urinalysis consistent with UTI and microscopic hematuria. Viral testing for COVID-19, influenza and RSV is negative. Abdominal pelvis CT scan showed multiple 2-3 mm right renal calculi with mild right hydroureter with periureteral stranding suggesting a recently passed stone and splenomegaly. Chest CTA is negative for pulmonary embolism and no evidence of pleural effusion, pneumothorax or consolidations. ECG showed sinus tachycardia 136 bpm and no acute ischemic changes. ED tx: NS 2.5 L bolus, ketorolac 15 mg IV, ceftriaxone 2 g, Zofran 4 mg IV, acetaminophen 650 mg PO. Hospital course The patient was admitted to the hospital with sepsis secondary to pyelonephritis of right kidney as CT scan showed stranding and signs of passing stone in ureter along with multiple 2-3 mm stones. She was treated with IV antibiotics of Ceftriaxone with good response as fever, nausea and pain resolved. Blood and urine cultures were positive for sensitive E.Coli. To be discharged on Ceftin to finish total of 2 weeks of antibiotics. The patient made quicker than expected recovery and does not need a 2nd overnight hospital stay. Discharge plan Keep yourself well hydrated Ibuprofen and Tylenol for pain Continue Ceftin for 2 weeks come back to ED for any worsening fever or pain Time Attestation Discharge Coordination Time (in mins): 38 Quality: Safe Use of Opioids Does Pt have an Active Cancer Diagnosis on the Problem List?: No Quality: Stroke Does the patient have a stroke diagnosis?: No Physical Exam Vital Signs: Vital Signs: Last Vital Signs Temp 97.3 F 03/05/24 07:28 Pulse 90 03/05/24 07:28 Resp 18 03/05/24 07:28 BP 143/81 H 03/05/24 07:28 Pulse Ox 92 03/05/24 07:28 O2 Del Method Room Air 03/05/24 07:28 BMI result Body Mass Index 32.8 Const: Other: Constitutional : Awake, interactive, not in distress Neck : Normal inspection, Supple Cardiovascular : RRR, no JVP, no lower extremity edema Respiratory : good bilateral air entry, no crackles, wheezes or rhonchi Gastrointestinal: soft, lax, Normal bowel sounds, Non tender Skin : Warm, Dry Neurological : Alert & oriented x3, No focal deficit DS: Data Data Completed and Pending Labs on day of discharge: Laboratory Results - last 24 hr 03/05/24 03/05/24 03/05/24 05:35 05:35 05:35 WBC Cancelled 8.4 RBC Cancelled 3.13 L Hgb Cancelled Hct MCV MCH MCHC RDW Plt Count MPV Immature Gran % (Auto) Neut % (Auto) Lymph % (Auto) [place] % (Auto) Eos % (Auto) Baso % (Auto) Lymph # (Auto) [place] # (Auto) Eos # (Auto) Baso # (Auto) Abs Immat Gran (auto) Absolute Neuts (auto) Absolute Nucleated RBC Nucleated RBC % (auto) Smear Tech's Comments Sodium Potassium Chloride Carbon Dioxide Anion Gap BUN Creatinine Estim Creat Clear Calc Estimated GFR Random Glucose Calcium Magnesium 03/05/24 03/05/24 03/05/24 05:35 05:35 05:35 WBC RBC Hgb 9.0 L Hct Cancelled 27.0 L MCV Cancelled 86.3 MCH Cancelled MCHC RDW Plt Count MPV Immature Gran % (Auto) Neut % (Auto) Lymph % (Auto) [place] % (Auto) Eos % (Auto) Baso % (Auto) Lymph # (Auto) [place] # (Auto) Eos # (Auto) Baso # (Auto) Abs Immat Gran (auto) Absolute Neuts (auto) Absolute Nucleated RBC Nucleated RBC % (auto) Smear Tech's Comments Sodium Potassium Chloride Carbon Dioxide Anion Gap BUN Creatinine Estim Creat Clear Calc Estimated GFR Random Glucose Calcium Magnesium 03/05/24 03/05/24 03/05/24 05:35 05:35 05:35 WBC RBC Hgb Hct MCV MCH 28.8 MCHC Cancelled 33.3 RDW Cancelled 14.8 Plt Count Cancelled MPV Immature Gran % (Auto) Neut % (Auto) Lymph % (Auto) [place] % (Auto) Eos % (Auto) Baso % (Auto) Lymph # (Auto) [place] # (Auto) Eos # (Auto) Baso # (Auto) Abs Immat Gran (auto) Absolute Neuts (auto) Absolute Nucleated RBC Nucleated RBC % (auto) Smear Tech's Comments Sodium Potassium Chloride Carbon Dioxide Anion Gap BUN Creatinine Estim Creat Clear Calc Estimated GFR Random Glucose Calcium Magnesium 03/05/24 03/05/24 03/05/24 05:35 05:35 05:35 WBC RBC Hgb Hct MCV MCH MCHC RDW Plt Count 140 L MPV Cancelled 12.6 H Immature Gran % (Auto) 0.9 H Neut % (Auto) 70.6 Lymph % (Auto) 14.3 L [place] % (Auto) 13.6 H Eos % (Auto) 0.4 Baso % (Auto) 0.2 Lymph # (Auto) 1.2 [place] # (Auto) 1.2 Eos # (Auto) 0.0 Baso # (Auto) 0.0 Abs Immat Gran (auto) 0.08 H Absolute Neuts (auto) 6.0 Absolute Nucleated RBC Cancelled 0.000 Nucleated RBC % (auto) Cancelled Smear Tech's Comments Sodium Potassium Chloride Carbon Dioxide Anion Gap BUN Creatinine Estim Creat Clear Calc Estimated GFR Random Glucose Calcium Magnesium 03/05/24 03/05/24 03/05/24 05:35 05:35 05:35 WBC RBC Hgb Hct MCV MCH MCHC RDW Plt Count MPV Immature Gran % (Auto) Neut % (Auto) Lymph % (Auto) [place] % (Auto) Eos % (Auto) Baso % (Auto) Lymph # (Auto) [place] # (Auto) Eos # (Auto) Baso # (Auto) Abs Immat Gran (auto) Absolute Neuts (auto) Absolute Nucleated RBC Nucleated RBC % (auto) 0.0 Smear Tech's Comments VERIFIED Sodium Cancelled 141 Potassium Cancelled 3.6 Chloride Cancelled Carbon Dioxide Anion Gap BUN Creatinine Estim Creat Clear Calc Estimated GFR Random Glucose Calcium Magnesium 03/05/24 03/05/24 03/05/24 05:35 05:35 05:35 WBC RBC Hgb Hct MCV MCH MCHC RDW Plt Count MPV Immature Gran % (Auto) Neut % (Auto) Lymph % (Auto) [place] % (Auto) Eos % (Auto) Baso % (Auto) Lymph # (Auto) [place] # (Auto) Eos # (Auto) Baso # (Auto) Abs Immat Gran (auto) Absolute Neuts (auto) Absolute Nucleated RBC Nucleated RBC % (auto) Smear Tech's Comments Sodium Potassium Chloride 110 H Carbon Dioxide Cancelled 20 L Anion Gap Cancelled 15 BUN Cancelled Creatinine Estim Creat Clear Calc Estimated GFR Random Glucose Calcium Magnesium 03/05/24 03/05/24 03/05/24 05:35 05:35 05:35 WBC RBC Hgb Hct MCV MCH MCHC RDW Plt Count MPV Immature Gran % (Auto) Neut % (Auto) Lymph % (Auto) [place] % (Auto) Eos % (Auto) Baso % (Auto) Lymph # (Auto) [place] # (Auto) Eos # (Auto) Baso # (Auto) Abs Immat Gran (auto) Absolute Neuts (auto) Absolute Nucleated RBC Nucleated RBC % (auto) Smear Tech's Comments Sodium Potassium Chloride Carbon Dioxide Anion Gap BUN 9 Creatinine Cancelled 0.67 Estim Creat Clear Calc Cancelled 124.4 Estimated GFR Cancelled Random Glucose Calcium Magnesium 03/05/24 03/05/24 03/05/24 05:35 05:35 05:35 WBC RBC Hgb Hct MCV MCH MCHC RDW Plt Count MPV Immature Gran % (Auto) Neut % (Auto) Lymph % (Auto) [place] % (Auto) Eos % (Auto) Baso % (Auto) Lymph # (Auto) [place] # (Auto) Eos # (Auto) Baso # (Auto) Abs Immat Gran (auto) Absolute Neuts (auto) Absolute Nucleated RBC Nucleated RBC % (auto) Smear Tech's Comments Sodium Potassium Chloride Carbon Dioxide Anion Gap BUN Creatinine Estim Creat Clear Calc Estimated GFR > 60 Random Glucose Cancelled 84 Calcium Cancelled 8.2 L D Magnesium 2.0 Preliminary micro results at discharge 03/03/24 19:24 Blood Culture - Preliminary Blood - Venous Gram negative costa 03/03/24 19:02 Blood Culture - Preliminary Blood - Venous Gram negative costa Imaging Chest x-ray: Radiologist's impression: ITS Impressions Chest X-Ray 03/03/24 19:27 IMPRESSION: No acute cardiopulmonary disease. Electronically signed by: Augustus Mejias DO 03/03/2024 09:12 PM EST RP Abdomen/Pelvis CT 03/03/24 20:11 IMPRESSION: 1. Multiple 2 to 3 mm right renal calculi. There is mild right hydroureter with periureteral stranding, suggestive of a recently passed stone. 2. Hepatomegaly. Fleischner guidelines were followed. Electronically signed by: Chris Bradley DO 03/03/2024 10:11 PM EST RP Chest CTA 03/03/24 23:48 IMPRESSION: *CT pulmonary angiogram negative for pulmonary embolic. *No pulmonary abnormalities identified. VTE: Negative. Electronically signed by: Fawad Maya MD 03/04/2024 12:54 AM EST RP Discharge Plan Discharge Anticipated Discharge Date/Time: 03/05/24 10:22 Patient Disposition: Home, Self-Care Discharge Diagnosis: PYelonephritis Referrals: Physician,None [Primary Care Provider] - 1 Week Discharge Medications: New cefuroxime axetil 500 mg tablet 500 mg PO BID Qty: 26 0RF Continued acetaminophen 500 mg Tablet 1,000 mg PO Q6H PRN (Reason: Pain) Discharge Orders: Discharge Order (Routine); Ordered 03/05/24 Ordered By: Carolyn Palacio Diet: Advance to usual diet Activity on Discharge: As tolerated Stand Alone Forms: Patient Portal Discharge page Print Language: [place] Care Plan Goals: You have kidney infection with multiple small stones. Keep yourself well hydrated Ibuprofen and Tylenol for pain Continue Ceftin for 2 weeks come back to ED for any worsening fever or pain Health Concerns: Pyelonephritis Plan of Treatment: Antibiotics for 2 weeks Assessment: as above
--- NOTE | 2024-03-05 11:46 | MHC.CM.PN ---
PT WILL DC HOME TODAY WITH NO SERVICES VIA PRIVATE TRANSPORT PCP LIST AND WEBSITE ADDRESS FOR CONTRACTED PCPS PROVIDED
== END 2024-03-05 12:13 | disposition home or self-care (01) | DRG 872 ==
LOC: HO.ED 03-04 01:05 → HO.EDOVER 03-04 02:05 → HO.S3 03-04 06:09
PROVIDERS: Nurse Practitioner Family; Physician Assistant; Physician Assistant Medical; Admitting Provider Internal Medicine; Emergency Provider Internal Medicine; Visit Provider Student in an Organized Health Care Education/Training Program
DX: A41.9 Sepsis, unspecified organism (principal); N13.6 Pyonephrosis; D64.9 Anemia, unspecified; B96.20 Unspecified Escherichia coli [E. coli] as the cause of diseases classified elsewhere; Z20.822 Contact with and (suspected) exposure to COVID-19
CPT/HCPCS: 0241U; 36415; 71046; 71275; 74176; 80048; 80053; 81001; 82803; 83605; 83690; 83735; 84702; 85025; 85379; 85610; 87040; 87077; 87086; 87088; 87186; 87205; 87651; 93005; 99285; J0696; J1650; J1885; J2270; J2405; J2765; J7120; Q9967

== ENCOUNTER → 2024-03-03 18:38 | Outpatient (BNV) | payer OTHER, SELFPAY | PROVIDERS: Admitting Provider Internal Medicine; Emergency Provider Internal Medicine; Visit Provider Internal Medicine Cardiovascular Disease | DX: R00.0 Tachycardia, unspecified (principal) | CPT/HCPCS: 93010 ==

== ENCOUNTER → 2024-03-04 02:02 | Outpatient (BNV) | payer OTHER, SELFPAY | PROVIDERS: Admitting Provider Internal Medicine; Emergency Provider Internal Medicine; Visit Provider Internal Medicine | DX: N12 Tubulo-interstitial nephritis, not specified as acute or chronic (principal); R65.10 Systemic inflammatory response syndrome (SIRS) of non-infectious origin without acute organ dysfunction; R00.0 Tachycardia, unspecified; D64.9 Anemia, unspecified | CPT/HCPCS: 99223; 99239; 99499 ==

== ENCOUNTER 2024-10-27 11:58 | Outpatient (AMB) | payer OTHER, SELFPAY ==
--- OUTSIDE RECORDS SUMMARY | 2024-01-26 20:00 | XMS_ITS | Continuity of Care Document ---
Author Organization [facility] Address [id number] [place] [address] Phone Care Team Providers Care Electron Gun Inspector Name Role Phone MunaLima Michelle LESTER Unavailable Unavail able Allergies, Adverse Reactions, Alerts Substance Reaction Status Criticality No Known Allergies Active No Inform ation Medications Medication Instructions Dosage Effective Dates (start - stop) Status Comments ibuprofen 800 mg tablet take 1 tablet by oral route 3 times every day with food prn joint pain, menstrual cramps - Active methocarbamol 500 mg tablet take 1 tablet by oral route 2 times every day as needed for menstrual cramps, tension headache 500 MG - Active Procedures Procedure Date No Show SYST BP < 130 MM HG DIAST BP < 80 MM HG MED LIST DOCD IN [facility] WELL EXAM, EST, AGE 18-39 Attests To Documenting In EHR Current Me ds MED LIST DOCD IN [facility] SYST BP < 130 MM HG DIAST BP 80-89 MM HG OFFICE/OUTPATIENT VISIT, EST Attests To Documenting In EHR Current Me ds SYST BP < 130 MM HG DIAST BP < 80 MM HG MED LIST DOCD IN [facility] OFFICE/OUTPATIENT VISIT, NEW ROUTINE VENIPUNCTURE Advance Directives Directive Yes / No Effective Date File Name No Information Encounters Encounter Description Practice Location Reason(s) For Visit Diagnoses Date Provider Providers Copied on Encounter [facility], [id number], [place], [place], [id number] , [place] tel:[phone] [facility] Medicine No Information 4 Missy Martinez. [address], [address], [place], [place], [address], [place]. tel:[phone] Referring Provider: Deandre Owen, [address], [place], [address] . tel:[phone] WELL EXAM, EST, AGE 18-39 [facility], [address], [place], [place], [id number] , [place] tel:[phone] [facility] Medicine preventive exam (chief complaint) Body mass index (BMI) 31.0-31.9, adultEncounter for general adult medical examination without abnormal findings 4 MovilleRema Martinez. [address], [address], [place], [place], [address], [place]. tel:[phone] Referring Provider: Deandre Owen, [address], [place], [address] . tel:[phone] OFFICE/OUTPA TIENT VISIT, EST [facility], [address], [place], [place], [address] , [place] tel:[phone] [facility] Medicine PAP test (chief complaint)m usculoskele daniel pain (chief complaint) Encounter for gynecological examination (general) (routine) without abnormal findingsBody mass index (BMI) 31.0-31.9, adultDysmenorrh ea, unspecifiedTens ion headache 3 MovilleGurdeep Martinez. [address], [address], [place], [place], [address], . tel:[phone] Referring Provider: Deandre Owen, [address], [place], [address] . tel:[phone] OFFICE/OUTPA [place]ENT VISIT, [place] [facility] [place] [address], [place], [place], [address] , tel:[phone] [facility] Medicine establish care (chief complaint)d ysmenorrhea (chief complaint)m usculoskele daniel pain (chief complaint)h eadache (chief complaint) Body mass index (BMI) 30.0-30.9, adultDysmenorrh ea, unspecifiedPain in joints of right handPain in joints of left handTension headache 3 Missy Martinez. [address], [address], [place], [place], [address], . tel:[phone] Referring Provider: Deandre Owen, [address] [facility], [place], [address] . tel:[phone] Family History Family Member Type Diagnosis Age At Onset Maternal grandmother Problem Diabetes mellitus Father Problem Coronary artery disease Mother Problem Cancer, unknown type Payers Payer name Insurance type Covered green party ID Authoriza tion(s) No Information Social History Type Description Quantity Date Captured Comments Sex Female Smoking Status No Information Chief Complaint And Reason For Visit No Information Reason For Referral Reason For Referral No Information Plan Of Treatment Date Type Action Status Goal Td vaccine. Due on 24 due Goal Influenza Vaccine. Due on due Goal PAP. Due on due Goal HPV (1st). Due on due Goal Depression scree kristin. Due on due Goal Tdap. Due on due Goal Hepatitis C Screen. Due on due Goal HPV testing. Due on 024 due Goal Lifestyle education regardin g diet completed Goal Tdap. Due on due Goal Td vaccine. Due on due Goal Hepatitis C Screen. Due on D ec due Goal HPV (1st). Due on due Goal PAP. Due on due Goal Influenza Vaccine. Due on De due Goal Depression scree kristin. Due on due Goal HPV testing. Due on 023 due Goal Depression scree kristin. Due on due Goal Tdap. Due on due Goal HPV testing. Due on 023 due Goal Td vaccine. Due on 23 due Goal Hepatitis C Screen. Due on O ct due Goal HPV (1st). Due on due Goal PAP. Due on due Goal Influenza Vaccine. Due on Oc due Patient Education Pap Test: Care Instruct ions completed Patient Education A Healthy Lifestyle: Ca re Instructions completed Patient Education A Healthy Lifestyle: Ca re Instructions completed Future Order: Lab Order Family Preservation Worker Pap Test-Age -based Guideline for Cervical Cancer (Aptima) and STDs (), Ordered on: Ordered History Of Present Illness Encounter Date Complaint History Of Prese nt Illness preventive exam Currently pregna nt: no.Patient is not contemplating . The patient states using none for control. Patient's menses is regular with heavy flow. Positive for dysmenorrhea. Negative for: breast lump(s), breast pain and breast self exam. Pertinent negatives include urinary incontinence, urinary urgency, vaginal discharge and vaginal itching.The patient states Patient's exercise level is moderate. The patient does not use tobacco. Additional information: Reports last pap approx 5 yrs ago. Has not had initial mammogram yet. Tried OCP's in past to help w dysmenorrhea but did not like weight gain. Same sex partner. No hx of abnormal pap. Fasting labs from Jan 2023 reviewed, no abnormal findings of concern. musculoskeletal pain Additional information: Reports Ibuprofen and Methocarbamol helpful. PAP test Menses onset yes terday w heavy flow PAP test musculoskeletal pain Pertinent n egatives include swelling. Additional information: Pain in hands and wrists. No family hx of RA. dysmenorrhea Additional infor mation: Severe menstrual cramps, heavy cycles. Reports regular menses lasting 5-6 days. Onset of menses today. headache The symptoms are intermittent. Headache timing includes daytime and no pattern. Symptoms are associated with stress. Symptoms are relieved by analgesics. Associated symptoms include neck stiffness. Pertinent negatives include dizziness, nausea, phonophobia and photophobia. establish care Seen today to [place]. Moved from [place] 4 months ago, works in [employer]. Functional Status Date Functional Assessmen t No Information Instructions Date Instruction Additional Infor mation RTO next year for an nual CPE.Offered OCP's for dysmenorrhea, declines at this time.Reviewed sx mgmt for dysmenorrhea. Related to Encounter for general adult medical examination without abnormal findings Giving encouragement to exercise Related to Body mass index [BMI] 31.0-31.9, adult Lifestyle education regarding di et Related to Body mass index [BMI] 31.0-31.9, adult Reschedule pap. Related to Encou nter for gynecological examination (general) (routine) without abnormal findings Continue Methocarbam ol and Ibuprofen prn. Related to Dysmenorrhea, unspecified Giving encouragement to exercise Related to Body mass index [BMI] 31.0-31.9, adult Dietary needs education Related to Body mass index [BMI] 31.0-31.9, adult Ibuprofen, Methocarbamol. Relate d to Tension headache Labs as noted.Ibupro fen, methocarbamol prn.RTO for CPE/pap in 6 weeks. Related to Dysmenorrhea, unspecified Workup for inflammatory arthriti s. Related to Pain in joints of right hand Giving encouragement to exercise Related to Body mass index [BMI] 30.0-30.9, adult Dietary needs education Related to Body mass index [BMI] 30.0-30.9, adult Assessments Type Assessment Date No Information Patient Care Teams Name Effective Dates (start - stop) Status Members No Information
[2024-10-27 12:12] VITALS: BP 144/98; PULSE 77; TEMP 36.6; O2SAT 98; BMI 31.1
--- NOTE | 2024-10-27 12:12 | AM.OFFWIN_ITS ---
Intake Vital Signs 10/27/24 12:12 Height 5 ft 5 in Weight 187 lb BMI 31.1 BP 144/98 H Blood Pressure Location Lt brachial Position Sitting Pulse 77 Pulse Source Pulse Oximeter Temp 97.9 F Temp Source Oral Pulse Oximetry (%) 98 Oxygen Delivery Method Room Air Intake Visit Reasons: EP severe menstrual pain, nausea Intake Note: presents with abdominal pain while on very heave menstruation that started today, nausea, low back pain Patient Tobacco Use Status: Never used Tobacco Allergies No Known Allergies Allergy (Verified 10/27/24 12:16) Do you need a note to return to daycare/school/sports/work: Yes HPI HPI Comments History of Present Illness Details This is a 39-year-old female with no stated past medical history presenting for evaluation of menstrual cramps. Patient states that her most recent menstrual period started today. Patient states that as she ages her menstrual cramps have been worsening. Patient is taking ibuprofen 800 mg daily without relief of her symptoms but describes nausea without vomiting. Patient denies having any fevers, chills, dysuria, urinary frequency or new sexual partners. [facility] Medical History (Updated 10/27/24 @ 12:40 by Leidy Hurley PA-C) Anemia Social History Household Members: Other Housing: Apartment Do you presently have visiting nurse or other home services: No Patient Tobacco Use Status: Never used Tobacco service: No Review of Systems Const All systems reviewed & are unremarkable except as noted in HPI and below Denies body aches, Denies chills, Denies fatigue, Denies fever(s) and Denies weakness GI Reports abdominal pain, Reports GI cramping, Reports nausea and Denies vomiting Reports no additional complaints, Reports as per HPI and Reports dysmenorrhea Musc Reports no additional complaints Neuro Denies weakness Endo Denies fatigue Physical Exam Vital Signs: Last Vital Signs Temp 97.9 F 10/27/24 12:12 Pulse 77 10/27/24 12:12 BP 144/98 H 10/27/24 12:12 Pulse Ox 98 10/27/24 12:12 Oxygen Delivery Method Room Air 10/27/24 12:12 BMI result Body Mass Index 31.1 Const General: cooperative, healthy appearing, comfortable, no acute distress, well developed, alert, awake and Physically active Nutritional Appearance: well nourished Orientation/consciousness: patient oriented x3 Limitations: no limitations Cardio Rate: regular rate Rhythm: regular rhythm GI Inspection: Yes normal to inspection Palpation (GI): Soft to palpation and Tenderness to palpation present (GI) (lower abdominal pain without guarding, no flank tenderness or CVAT) Auscultation: normal bowel sounds Neuro General: patient oriented x3 Psych Appearance: grossly normal Mental Status: mental status grossly normal Insight: Good insight present (Psych) Judgement: Good judgement present (Psych) Assessment & Plan Assessment & Plan (1) Dysmenorrhea: Comment: patient is well-appearing; will be referred to [facility] as she has no Parks 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 Code(s): N94.6 - Dysmenorrhea, unspecified Plan: Naprosyn 500 mg q.12 hours and methocarbamol 750 q.8 hours p.r.n. pain; additionally, patient will be given Zofran to use as needed for her nausea. Medications: New naproxen (Naprosyn) 500 mg PO BID 20 tabs 0RF ondansetron 4 mg PO Q6H PRN 10 tabs 0RF nausea and vomiting methocarbamol 750 mg PO Q8H 20 tabs 0RF Discontinued cefuroxime axetil Discontinued Reason: Patient Completed Course 500 mg PO BID 26 tabs 0RF Coding Level of Care Code New Pt Level 4 (23013) Diagnoses Dysmenorrhea N94.6 Time Spent (min) 20
== END 2024-10-27 12:35 | disposition home or self-care (01) ==
PROVIDERS: Visit Provider Physician Assistant
DX: N94.6 Dysmenorrhea, unspecified (principal)

== ENCOUNTER → 2024-10-27 11:58 | Outpatient (BNVA) | payer OTHER, SELFPAY | PROVIDERS: Visit Provider Physician Assistant | DX: N94.6 Dysmenorrhea, unspecified (principal) | CPT/HCPCS: 99202 ==

== ENCOUNTER 2024-11-22 12:04 | Outpatient (AMB) | payer OTHER, SELFPAY ==
[2024-11-22 12:07] VITALS: BP 138/82; PULSE 63; TEMP 36.8; O2SAT 100; BMI 31.1
--- NOTE | 2024-11-22 12:07 | AM.OFFWIN_ITS ---
Intake Vital Signs 11/22/24 12:07 Height 5 ft 5 in Weight 187 lb BMI 31.1 BP 138/82 Blood Pressure Location Rt brachial Position Sitting Pulse 63 Pulse Source Pulse Oximeter Temp 98.2 F Temp Source Oral Pulse Oximetry (%) 100 Oxygen Delivery Method Room Air Intake Visit Reasons: EP-lt eye swollen & pain Intake Note: presents with left eye swelling and pain. vision undisturbed Patient Tobacco Use Status: Never used Tobacco Allergies No Known Allergies Allergy (Verified 11/22/24 12:09) Do you need a note to return to daycare/school/sports/work: Yes HPI HPI Comments History of Present Illness Details History of Present Illness - The patient is a 39-year-old female pr esenting with left eye pain and redness. - Left eye pain and redness started yest erday. - Difficult to open the eye, was more sw ollen yesterday, used Refresh eye drops and allergy eye drops with no improvement in pain. - Uses contact lenses for vision. Prescr ibed by her eye dr in [place] - Reports photophobia and difficulty ope kristin the eye. - No history of trauma or foreign body i n the eye. - Denies visual changes or blurry vision or pressure in the eye. - Reports watery discharge but no yellow or yoo discharge noted. Physical Exam General: Cooperative, healthy appearing, comfortable, no acute distress and well developed Orientation: Patient oriented x3 Limitations: No limitations Head: Normal to inspection Ears: Hearing grossly normal bilaterally Nose: Normal External nose present Face and sinus: Normal facial exam Eyes: as below Neck: Normal visual inspection and Yes full ROM Respiratory: Normal respiratory effort and able to speak in complete sentences. Skin: No rashes or lesions noted Neuro: Patient oriented x3 Extremities: Normal to inspection [facility] Medical History (Updated 11/22/24 @ 12:38 by Alisha Tesfaye PA-C) Anemia Social History Household Members: Other Housing: Apartment Do you presently have visiting nurse or other home services: No Patient Tobacco Use Status: Never used Tobacco service: No Review of Systems Const All systems reviewed & are unremarkable except as noted in HPI and below Eyes Reports photophobia (left eye) Physical Exam Vital Signs: Last Vital Signs Temp 98.2 F 11/22/24 12:07 Pulse 63 11/22/24 12:07 BP 138/82 11/22/24 12:07 Pulse Ox 100 11/22/24 12:07 Oxygen Delivery Method Room Air 11/22/24 12:07 BMI result Body Mass Index 31.1 Eyes Alignment and Position: alignment normal and position normal Periorbital: periorbital findings normal Eyelids: Yes eyelids normal Conjunctivae: conjunctival abnormal left conjunctival injection; without discharge Pupils: Equal, round and reactive pupils present EOM: EOMs intact bilaterally Direct Ophthalmoscopy: photophobia (left eye) Neuro Cranial nerves: Yes Equal, round and reactive pupils present Assessment & Plan Assessment & Plan (1) Acute left eye pain: Code(s): H57.12 - Ocular pain, left eye Plan: As patient has left eye pain x2 days with light sensitivity an injection, I was able to called Dr. Norris's office and get her a walk-in appointment at 1pm today which is 30 minutes from now. I gave the information to the patient and ensured she knew where she was going and what to bring, her license in insurance card. She will head there straight from here to have eye emergencies such as uveitis, acute glaucoma, or similar versus abrasion/ulcer from contact use. Coding Level of Care Code New Pt Level 3 (03608) Diagnoses Acute left eye pain H57.12
== END 2024-11-22 12:39 | disposition home or self-care (01) ==
PROVIDERS: Visit Provider Physician Assistant
DX: H57.12 Ocular pain, left eye (principal)

== ENCOUNTER → 2024-11-22 12:04 | Outpatient (BNVA) | payer OTHER, SELFPAY | PROVIDERS: Visit Provider Physician Assistant | DX: H57.12 Ocular pain, left eye (principal) | CPT/HCPCS: 99202 ==

== ENCOUNTER 2025-02-21 08:15 | Outpatient (AMB) | payer OTHER, SELFPAY ==
[2025-02-21 08:17] VITALS: BP 136/90; PULSE 69; RESP 16; TEMP 36.6; O2SAT 100; BMI 32.3
--- NOTE | 2025-02-21 08:17 | AM.OFFWIN_ITS ---
Intake Vital Signs 02/21/25 08:17 Height 5 ft 5 in Weight 194 lb BMI 32.3 BP 136/90 H Blood Pressure Location Lt brachial Position Sitting Respiration 16 Pulse 69 Pulse Source Pulse Oximeter Temp 97.9 F Temp Source Oral Pulse Oximetry (%) 100 Oxygen Delivery Method Room Air Intake Visit Reasons: EP-severe menstruation pain Intake Note: Pt is here today for severe menstruation pain: doesn't have OBGYN Patient Tobacco Use Status: Never used Tobacco Is last menstrual period known: Yes Last menstrual period: 02/21/25 Allergies No Known Allergies Allergy (Verified 02/21/25 08:18) HPI HPI Comments History of Present Illness Details History of Present Illness - The patient is a 39-year-old female pr esenting with severe menstrual cramps and heavy menstrual bleeding. - The patient reports that her menstrual periods have always been heavy, but the pain has worsened over the years. - The pain begins three days before mens truation and is accompanied by low back pain and nausea. - The severity of the pain has increased annually. - The patient has not had any prior work up for fibroids or other uterine abnormalities. - The patient has no children and has no t been previously diagnosed with fibroids. - She has taken tylenol for her pain wit h no relief. - She has moved here from [place] and current ly does not have a PCP. - She denies CP, SOB, blood clots, vagin al discharge, vaginal itch, CHAVEZ, dizziness, or weakness. - Needs a work note for today. Physical Exam General: Cooperative, healthy appearing, comfortable, no acute distress and well developed Orientation: Patient oriented x3 Limitations: No limitations Respiratory: Normal respiratory effort and able to speak in complete sentences. Clear to auscultation bilaterally. No w/r/r noted. Cardiovascular: Regular rate and rhythm. Normal S1 and S2. No m/r/g noted. GI: Hypoactive BS noted. Soft, non-distended. TTP of the suprapubic region. No guarding or rebound tenderness noted. Negative Rovsing noted. Negative CVA tenderness noted. Patient was informed and verbally consented to the use of an ambient scribe for clinic note documentation during this visit. [facility] Medical History (Updated 11/22/24 @ 12:38 by Alisha Tesfaye PA-C) Anemia Social History Household Members: Other Housing: Apartment Do you presently have visiting nurse or other home services: No Patient Tobacco Use Status: Never used Tobacco service: No Female Reproductive History Menstrual Date of last menstrual period: 02/21/25 Review of Systems Const All systems reviewed & are unremarkable except as noted in HPI and below Physical Exam Vital Signs: Last Vital Signs Temp 97.9 F 02/21/25 08:17 Pulse 69 02/21/25 08:17 Resp 16 02/21/25 08:17 BP 136/90 H 02/21/25 08:17 Pulse Ox 100 02/21/25 08:17 Oxygen Delivery Method Room Air 02/21/25 08:17 BMI result Body Mass Index 32.3 Assessment & Plan Assessment & Plan (1) Dysmenorrhea: Comment: patient is well-appearing; will be referred to [facility] as 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 Code(s): N94.6 - Dysmenorrhea, unspecified Plan Most likely Dysmenorrhea vs perimenopause vs fibroids plan - Pain management with prescribed medication. - Referral to primary care for further evaluation and to establish care. - Advised heat to the area, increase her water intake and daily exercise. - Dietary recommendations including increased intake of leafy vegetables, vitamin D, and magnesium. - Referral to a photoengraving helper for further evaluation and management. Medications: New ibuprofen 800 mg PO TID PRN 30 tabs 0RF pain Coding Level of Care Code Est Pt Level 3 (17280) Diagnoses Dysmenorrhea N94.6
== END 2025-02-21 10:23 | disposition home or self-care (01) ==
PROVIDERS: Visit Provider Physician Assistant Medical
DX: N94.6 Dysmenorrhea, unspecified (principal)

== ENCOUNTER → 2025-02-21 08:15 | Outpatient (BNVA) | payer OTHER, SELFPAY | PROVIDERS: Visit Provider Physician Assistant Medical | DX: N94.6 Dysmenorrhea, unspecified (principal) | CPT/HCPCS: 99212 ==

== ENCOUNTER 2025-03-12 15:07 | Outpatient (REF) | payer OTHER, SELFPAY ==
[2025-03-12 18:37] LABS: Hematocrit 40.9 % (37.0-47.0); Hemoglobin 13.1 g/dl (12.0-16.0); Mean Corpuscular HGB Conc 32.0 g/dl (31.0-35.0); NRBC Abs Auto 0.000 X10*3/uL (0.0-0.012); NRBC Pct Auto 0.0 /100WBC (0.0-0.2); SCAN SMEAR FLAG 1
[2025-03-12 18:39] LABS: Imm Gran Abs Auto 0.02 X10*3/uL (0.00-0.03); Imm Gran Pct Auto 0.2 % (0.0-0.4); Lymphocytes Absolute Auto 2.0 X10*3/uL (1.2-4.9); MANUAL DIFF FLAG SCAN; Mean Corpuscular Hemoglobin 28.3 pg (27.0-33.0); Mean Corpuscular Volume 88.3 fL (80.0-98.0); PLT CLUMP 1; Red Blood Count 4.63 X10*6/uL (4.20-5.50)
[2025-03-12 18:56] LABS: PLT ABN DIST 1; White Blood Count 8.2 X10*3/uL (4.8-10.8)
[2025-03-12 19:14] LABS: Alanine Aminotransferase 12 U/L (0-31); Albumin Level 4.6 g/dL (3.5-5.0); Alkaline Phosphatase 120 U/L (39-117); Anion Gap 11 (12-20); Aspartate Amino Transferase 18 U/L (5-31); Blood Urea Nitrogen 14 mg/dL (9-16); Calcium 9.0 mg/dL (8.4-10.2); Carbon Dioxide 28 mmol/L (22-29); Chloride 104 mmol/L (96-108); Cholesterol 182 mg/dL (<200); Estimated Glomerular Filt Rate > 60; HDL Cholesterol 62 mg/dL (>40); Magnesium 1.9 mg/dL (1.6-2.6); Potassium 3.9 mmol/L (3.3-5.1); Sodium 139 mmol/L (135-145); Total Protein 8.0 g/dL (6.5-8.0); Triglycerides 65 mg/dL (<150)
[2025-03-12 19:23] LABS: Folate 7.5 ng/mL (> or = 4.0); Vitamin B12 338 pg/mL (200-900)
[2025-03-12 19:33] LABS: Platelet Count 183 X10*3/uL (160-400)
[2025-03-13 04:45] LABS: HBS Num1 1.02 mIU/mL (0-7.99); HBsAGNum1 0.35 S/CO (0.00-0.99); HIV Num 1 0.07 S/CO (0.00-0.99); Hepatitis B Surface Antigen Negative (Negative); ~HepC Num1 0.13 S/CO (0.00-0.79); ~Hepatitis B Surface Antibody NONREACTIVE (Nonreactive); ~Hepatitis C Antibody Nonreactive (Nonreactive)
[2025-03-16 16:24] LABS: VITAMIN D (1,25 OH) D3 37 pg/mL; Vit D (1,25-Dihydroxy) Total 37 pg/mL (18-72); Vitamin D (1,25 OH) D2 <8 pg/mL
== END 2025-03-12 15:08 | disposition home or self-care (01) ==
LOC: HO.HKASLDS 15:07
PROVIDERS: PCP Student in an Organized Health Care Education/Training Program; Visit Provider Student in an Organized Health Care Education/Training Program
DX: Z13.9 Encounter for screening, unspecified (principal); N94.6 Dysmenorrhea, unspecified; R03.0 Elevated blood-pressure reading, without diagnosis of hypertension; M79.10 Myalgia, unspecified site; R53.83 Other fatigue; Z79.899 Other long term (current) drug therapy
CPT/HCPCS: 36415; 80053; 80061; 82607; 82652; 82746; 83036; 83735; 84443; 85025; 86706; 86803; 87340; 87389; 96127; 99202

== ENCOUNTER 2025-03-12 15:07 | Outpatient (AMB) | payer OTHER, SELFPAY ==
--- NOTE | 2025-03-12 15:13 | A.OFFPC_ITS ---
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 - Est Care / RE Period pain Intake Note: Est care/ period pain Bonderite Operator Required: No Allergies No Known Allergies Allergy (Verified 03/12/25 15:15) Medication List - Last Reconciled 03/12/25 by Earle Dalton MD ibuprofen 800 mg PO TID PRN Tobacco use date assessed: 03/12/25 Dental Screening Dental Screen Date: 03/12/25 Did you have a dental visit in the last 12 months?: Yes Did you have a dental problem in the last 6 months where you did not have access to dental care?: No Was dental information given to patient?: Patient has dentist HPI HPI Comments History of Present Illness Details History of Present Illness The patient is a 39 year old individual presenting to pending sale to [facility] primary [facility] and for evaluation of severe menstrual pain. Dysmenorrhea: The patient reports experiencing very strong menstrual pain that begins two days before the onset of menses and continues for the first two days of the cycle. The patient notes some pain continues after the second day, but it is not as significant. A sonogram performed several years ago reportedly showed cysts. Elevated Blood Pressure: The patient reports having very high blood pressure readings during recent appoi ntments, which the patient attributes possibly to nervousness. The patient does not have a machine to monitor blood pressure at home. Myalgia and Fatigue: The patient reports a recent onset of significant pain in the bones and feeling very discouraged, which the patient speculates could be related to the patient's type of work. The patient is unaware of the patient's status regarding anemia or vitamin B12 and vitamin D levels. Health Maintenance: The patient is 39 years old and had a mammogram performed several years ago in [place]. The last Pap smear was two to three years ago, and the results were normal. Surgical History: - No prior surgical history was discusse d. Medications: - Ibuprofen for menstrual pain. Social History: - The patient has been living in [facility] for one and a half years. - The patient lives with a partner. - The patient reports experiencing stres s related to family being located in [place] and [place]. Family History: - No family history was discussed. Diagnostic Results: - Pap smear (2-3 years ago): Normal. - Sonography (several years ago): Showed cysts. Past Medical History - History of cysts found on sonography s everal years ago. - Reports situationally elevated blood p ressure readings. Health Maintenance - An order for a mammogram is being plac ed. - The patient will be called to schedule the mammogram appointment. - A follow-up visit is scheduled in two weeks to review all test results. [facility] Medical History (Updated 03/13/25 @ 08:03 by Earle Dalton MD) Myalgia Elevated blood pressure reading Hypertension Pelvic pain Anemia Family History (Updated 03/12/25 @ 15:17 by Maninder Collado CMA) Mother Hypertension Sister Hypertension Social History (Updated 03/12/25 @ 15:18 by Maninder Collado CMA) Household Members: Other Housing: Apartment Do you presently have visiting nurse or other home services: No Alcohol intake: current Comment: ocasionally Patient Tobacco Use Status: Never used Tobacco e-Cigarette/Vaping Use: Currently Using service: No Current occupational status: employed Current occupation: [employer] Cognitive needs: No Hearing needs: No Vision needs: Yes Questionnaire PHQ-9 Over the last 2 weeks, how often have you been bothered by any of the following problems? 1. Little interest or pleasure in doing things: several days 2. Feeling down, depressed, or hopeless: several days 3. Trouble falling or staying asleep, or sleeping too much: several days 4. Feeling tired or having little energy: more than half the days 5. Poor appetite or overeating: not at all 6. Feeling bad about yourself - or that you are a failure or have let yourself or your family down: several days 7. Trouble concentrating on things, such as reading the newspaper or watching television: not at all 8. Moving or speaking so slowly that other people could have noticed. Or the op posite - being so fidgety or restless that you have been moving around a lot more than usual: not at all 9. Thoughts that you would be better off or of hurting yourself in some way: not at all Total score: 6 Source: Developed by Pio Torreset B.W. Blas, Jonathan Celestin and colleagues, with an educational dilshad from [employer]. Thrive Questionnaire Date Thrive assessed: 03/05/25 I am a: Patient What is your living situation today?: I have a steady place to live Within the past 12 months, did the food you bought not last and you didn't have the money to get more?: Never true Within the past 12 months, did you worry whether your food would run out before you got money to buy more?: Never true Do you have trouble paying for medicines?: No Do you have trouble getting transportation to medical appointments?: No Do you have trouble paying your heating and electricity bill?: No Do you have trouble taking care of your child, family member or friend?: No Do you have trouble with day-to-day activities such as bathing, preparing meals, shopping, managing finances, etc.?: No Are you currently unemployed and looking for a job?: No Are you interested in more education?: No Please select the resources that you would like help with: None Currently or been in a relationship where the following occur: No concerns reported THRIVE Score: 0 AUDIT C Alcohol Use Questionnaire (AUDIT-C) 1. How often do you have a drink containing alcohol?: Monthly or less 2. How many drinks containing alcohol do you have on a typical day when you are drinking?: 1 or 2 3. How often do you have six or more drinks on one occasion?: Never Total Score: 1 LULA-7 AMB Questionnaire LULA-7 Feeling nervous, anxious, or on edge: 2 = More than half the days Not being able to stop or control worryin = More than half the days Worrying too much about different things: 2 = More than half the days Trouble relaxin = Several days Being so restless that it is hard to sit still: 0 = Not at all Becoming easily annoyed or irritable: 3 = Nearly every day Feeling afraid as if something awful might happen: 0 = Not at all Total LULA-7 score (0-4 normal; 5-9 mild; 10-14 moderate; 15-21 severe): 10 Source: Developed by Marion Torres, Jonathan Celestin and colleagues, with an educational dilshad from [employer]. Review of Systems Narrative Review of Systems - Genitourinary: Reports severe dysmenorrhea starting 2 days before menses and lasting for the first 2 days of the cycle. - Cardiovascular: Reports elevated blood pressure readings in clinical settings. - Musculoskeletal: Reports generalized pain in the bones. - Constitutional: Reports feeling very discouraged and fatigued. - Neurological: Denies sleep disturbances that are not normal. - Psychiatric: Reports stress. 10-point ROS reviewed and negative except as noted in HPI Physical exam (Primary Care) Vital Signs: Last Vital Signs Temp 97.9 F 03/12/25 15:18 Pulse 65 03/12/25 15:18 Resp 18 03/12/25 15:18 BP 188/88 H 03/12/25 15:18 Pulse Ox 99 03/12/25 15:18 Oxygen Delivery Method Room Air 03/12/25 15:18 BMI result Body Mass Index 32.4 Tobacco/Smoking Status: Tobacco use Status Tobacco use date assessed 03/12/25 03/12/25 15:20 Patient Tobacco Use Status Never used Tobacco 03/12/25 15:18 e-Cigarette/Vaping Use Currently Using 03/12/25 15:20 PHQ-9: PHQ-9 Score PHQ-9: Total score 6 03/12/25 17:04 Thrive Assessment: Date of Thrive Assessment Date Thrive assessed 03/05/25 03/12/25 15:14 Currently or been in a relationship where the following occur: No concerns reported Narrative Physical Exam General: Well-appearing, in no acute distress. Vital signs: Blood pressure is slightly high at 188/88. HEENT: Normocephalic, atraumatic. PERRLA, EOMI. Conjunctiva clear, sclera anicteric. Oropharynx clear, mucous membranes moist. TMs intact bilaterally. Neck: Supple, no lymphadenopathy, no thyromegaly, no JVD or carotid bruits. Cardiovascular: RRR, normal S1/S2, no murmurs, rubs, or gallops. Peripheral pulses 2+ and symmetric. No edema. Respiratory: Lungs clear to auscultation bilaterally, no wheezes, rales, or rhonchi. Normal effort. Abdomen: Soft, non-tender, non-distended. Normoactive bowel sounds. No hepatosplenomegaly, no masses. MSK: Full range of motion, no joint swelling or deformity. Reports a lot of pain in bones and feeling very discouraged. Skin: Warm, dry, intact. No rashes, lesions, or pallor. Neuro: Alert and oriented x3. Cranial nerves II-XII intact. Strength 5/5 throughout. Sensation intact. Reflexes 2+ symmetric. Normal coordination and gait. Psych: Appropriate mood and affect. Normal judgment and insight. Reports stress due to being away from family. 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 Code(s): N94.6 - Dysmenorrhea, unspecified Category: Medical (2) Elevated blood pressure reading: Code(s): R03.0 - Elevated blood-pressure reading, without diagnosis of hypertension Category: Medical (3) Myalgia: Code(s): M79.10 - Myalgia, unspecified site Category: Medical (4) Fatigue: Code(s): R53.83 - Other fatigue Plan Consent No formal consent discussion regarding specific risks, benefits, or alternatives for the planned diagnostic studies was documented in the conversation. Patient was informed and verbally consented to the use of an ambient scribe for clinic note documentation during this visit. Plan 1. Dysmenorrhea - The patient will continue using ibuprofen and an electric heating pad for pain relief. - A refill for ibuprofen will be sent to the pharmacy. - An order for a transvaginal and pelvic sonography will be placed to evaluate for potential fibromas or other causes of pain. - The patient will be contacted to schedule the sonography. 2. Elevated Blood Pressure - The patient was advised to purchase a home blood pressure monitor. - The patient was instructed to measure blood pressure twice daily, once in the morning and once at night, and to continue until the next visit. - Instructions were provided for proper blood pressure measurement technique: sitting with feet flat on the floor and back supported. 3. Myalgia And Fatigue - Comprehensive lab work has been ordered to be drawn today to investigate potential underlying causes. - The ordered labs include checks for triglycerides, hepatitis B, HIV, vitamin D, folate, and vitamin B12, as well as a urinalysis. Discussion Notes I discussed with the patient that we will investigate the severe menstrual pain with a transvaginal and pelvic sonography to look for causes such as fibromas, and in the meantime, to continue with ibuprofen and heat for symptomatic relief. I noted the in-office blood pressure was high at 188/88 mmHg and instructed the patient to purchase a blood pressure cuff to monitor readings at home twice daily to better assess the patient's baseline pressure. To evaluate the feelings of fatigue and body aches, I ordered comprehensive blood work to be drawn today, including vitamin B12, vitamin D, and folate levels. Given the patient is 39 years old, I have placed an order for a screening mammogram. I informed the patient that our office will call to schedule the sonography and mammogram, and we will have a follow-up appointment in two weeks to review all results. Patient Instructions - Continue to manage menstrual pain with ibuprofen and a heating pad. - A refill for ibuprofen will be sent to your pharmacy. - Proceed to the lab today to have your blood drawn. - You will receive a phone call to schedule an ultrasound and a mammogram. - Please purchase a blood pressure machine to use at home. - Check your blood pressure twice every day, once in the morning and once at night. - When taking your blood pressure, sit in a chair with back support and keep your feet flat on the floor. - Please schedule a follow-up appointment in two weeks to review your test results. Medical Decision Making My assessment of this 39-year-old individual establishing care is focused on several complaints. The chief complaint of severe dysmenorrhea, along with a past history of cysts, warrants investigation for an underlying structural ca use, such as fibroids or complex cysts, making a transvaginal and pelvic sonography a necessary next diagnostic step. The in-office blood pressure reading of 188/88 mmHg is significantly elevated and concerning. While the patient suggests this could be related to nervousness, the elevation merits further evaluation to differentiate white coat hypertension from sustained hypertension; therefore, home blood pressure monitoring is crucial before considering antihypertensive therapy. The patient's nonspecific symptoms of myalgia and fatigue prompt a broad laboratory evaluation to screen for common etiologies such as anemia or vitamin deficiencies (B12, D). As the patient is 39, ordering a routine screening mammogram is appropriate for health maintenance. A follow-up in two weeks will allow for a comprehensive review of these initial diagnostic findings to guide further management. Total Time Statement 30 min Total time spent caring for the patient today includes pre-visit chart review, d ocumentation, review of laboratory and diagnostic imaging results, medication reconciliation, medically necessary evaluation, counseling on diagnoses, care coordination, ordering appropriate tests and medications, review of tests performed by other providers, reporting test results to the patient, and communication with other healthcare providers. Orders: Orders Comprehensive Met. Panel 03/12/25 Z13.9 - Encounter for screening, unspecified UA CC w/rflx Micro + Cult 03/12/25 Z13.9 - Encounter for screening, unspecified Vitamin B12 and Folate 03/12/25 Z13.9 - Encounter for screening, unspecified Hemoglobin A1c 03/12/25 Z13.9 - Encounter for screening, unspecified Magnesium 03/12/25 Z13.9 - Encounter for screening, unspecified Vitamin D 1,25 dihydroxy 03/12/25 Z13.9 - Encounter for screening, unspecified US pelvic and transvaginal 03/12/25 R10.20 - Pelvic and perineal pain unspecified side Complete Blood Count Auto Diff 03/12/25 Z13.9 - Encounter for screening, unspecified Hepatitis B Surface Antigen 03/12/25 Z13.9 - Encounter for screening, unspecified Hepatitis C Antibody 03/12/25 Z13.9 - Encounter for screening, unspecified TSH reflex Free T4 03/12/25 Z13.9 - Encounter for screening, unspecified HIV Ab/Ag 03/12/25 Z13.9 - Encounter for screening, unspecified Lipid Panel 03/12/25 Z13.9 - Encounter for screening, unspecified Hepatitis B Surface Antibody 03/12/25 Z13.9 - Encounter for screening, unspecified MM screening mammo BI 03/12/25 Z12.31 - Encounter for screening mammogram for malignant neoplasm of breast Medications: New [blood pressure] As directed 1 ea 0RF I10 - Essential (primary) hypertension Refilled ibuprofen 800 mg PO TID PRN 30 tabs 0RF pain
[2025-03-12 15:18] VITALS: BP 188/88; PULSE 65; RESP 18; TEMP 36.6; O2SAT 99; BMI 32.4
== END 2025-03-12 15:53 | disposition home or self-care (01) ==
LOC: HO.HMCFMS 15:08
PROVIDERS: PCP Student in an Organized Health Care Education/Training Program; Visit Provider Student in an Organized Health Care Education/Training Program
DX: N94.6 Dysmenorrhea, unspecified (principal); R03.0 Elevated blood-pressure reading, without diagnosis of hypertension; M79.10 Myalgia, unspecified site; R53.83 Other fatigue

== ENCOUNTER 2025-03-13 15:43 | Outpatient (REF) | payer OTHER, SELFPAY ==
[2025-03-13 18:47] LABS: Appearance Urine Clear; Glucose Urine UA Negative (Negative); PH 7.5 (5.0-9.0); Specific Gravity - Urine 1.020 (1.005-1.025); UMIC TRIGGER UACC YES
[2025-03-13 19:06] LABS: UACC Culture Trigger YES
== END 2025-03-13 15:44 | disposition home or self-care (01) ==
LOC: HO.HKASLDS 15:43
PROVIDERS: PCP Student in an Organized Health Care Education/Training Program; Visit Provider Student in an Organized Health Care Education/Training Program
DX: Z13.89 Encounter for screening for other disorder (principal)
CPT/HCPCS: 81001; 87086

== ENCOUNTER 2025-04-17 08:10 | Outpatient (REF) | payer OTHER, SELFPAY ==
--- NOTE | ~2025-04-17 | MM_ITS ---
EXAMINATION: MM SCREENING DIGITAL BREAST TOMOSYNTHESIS, BILATERAL CLINICAL INFORMATION: Screening. Asymptomatic. COMPARISON: Mammography: Baseline. TECHNIQUE: Digital breast mammography with tomosynthesis is performed in both the craniocaudal and mediolateral oblique views along with computer-aided detection (CAD). FINDINGS: The breasts are heterogeneously dense, which may obscure small masses. There are no significant masses, abnormal calcifications, or other abnormalities. MM/MM tomosynthesis screening BI IMPRESSION: No mammographic evidence of malignancy. ASSESSMENT: BI-RADS Category 1: Negative RECOMMENDATION: Routine annual mammography screening. 1 year F/U This examination should not preclude the clinical evaluation of a suspicious palpable abnormality. This patient's information was entered into a reminder system with a target due date for their next mammogram. Electronically signed by: Rafaela Davis DO 04/18/2025 02:18 PM [facility]
== END 2025-04-17 08:11 ==
LOC: HO.MAMMO 08:10
PROVIDERS: PCP Student in an Organized Health Care Education/Training Program; Visit Provider Student in an Organized Health Care Education/Training Program
DX: Z12.31 Encounter for screening mammogram for malignant neoplasm of breast (principal)
CPT/HCPCS: 77063; 77067

== ENCOUNTER → 2025-04-17 08:30 | Outpatient (BNV) | payer OTHER, SELFPAY | PROVIDERS: PCP Student in an Organized Health Care Education/Training Program; Visit Provider Internal Medicine | DX: Z12.31 Encounter for screening mammogram for malignant neoplasm of breast (principal) | CPT/HCPCS: 77063; 77067 ==